=== PATIENT | female | born 1945 ===

== ENCOUNTER 2022-02-25 08:04 | Outpatient (CLI) | payer MEDICARE, OTHER | END 2022-02-25 12:53 | disposition home or self-care (01) | LOC: LAB 08:04 | PROVIDERS: ATTEND Podiatrist Foot & Ankle Surgery | DX: Z01.812 Encounter for preprocedural laboratory examination (principal); Z20.822 Contact with and (suspected) exposure to COVID-19 ==

== ENCOUNTER 2022-02-27 06:16 | Day surgery (SDC) | payer MEDICARE, OTHER ==
[2022-02-27] MEDS ORDERED: LIDOCAINE HCL 1% 20 ML VIAL ONE ×2 (06:38→06:39)
[2022-02-27] MEDS ORDERED: BUPIVACAINE PF 0.5% 30 ML VIAL ONE (06:38)
[2022-02-27 07:12] LABS: *BILIRUBIN,URIN NEGATIVE (NEGATIVE); *BLOOD, URINE 1+ (NEGATIVE); *CLARITY,URINE CLEAR (CLEAR); *COLOR,URINE YELLOW (YELLOW); *KETONES,URINE NEGATIVE (NEGATIVE); *UROBILINOGEN,URINE 0.2 E.U./dl (NORMAL); LEUKOCYTE ESTERASE ,URINE NEGATIVE (NEGATIVE); NITRITE, URINE NEGATIVE (NEGATIVE); PH,URINE 7.5 (5.0-8.0); UGLUCOSE NEGATIVE (NEGATIVE)
[2022-02-27] MEDS ORDERED: ROCURONIUM BROMIDE 50 MG/5 ML VIAL ONE (07:18)
[2022-02-27] MEDS ORDERED: FENTANYL CITRATE 100 MCG/2 ML AMPUL ONE ×2 (07:18→12:52)
[2022-02-27] MEDS ORDERED: SEVOFLURANE 250 ML BOTTLE ONE (07:26)
[2022-02-27] MEDS ORDERED: CLINDAMYCIN PHOSPHATE IV 600 MG in IV DEXTROSE 5% 100 ML IV ONE (07:30)
[2022-02-27 07:46] LABS: WBC,URINE 0-3 /HPF (0-3)
[2022-02-27 07:47] LABS: BACTERIA,URINE FEW /HPF (NONE SEEN); SQUAMOUS EPITHELIAL CELL,UR FEW /HPF (NONE SEEN)
[2022-02-27] MEDS ORDERED: KETOROLAC TROMETHAMINE 30 MG INJ ONE (13:16)
[2022-02-27] MEDS ORDERED: ONDANSETRON 4 MG/2 ML VIAL ONE (13:16)
[2022-02-27] MEDS ORDERED: GLYCOPYRROLATE 0.2 MG/ML VIAL ONE ×4 (13:16)
[2022-02-27] MEDS ORDERED: PHENYLEPHRINE 10 MG/1 ML VIAL ONE (13:16)
[2022-02-27] MEDS ORDERED: NEOSTIGMINE METHYLSULFATE 10 MG/10 ML VIAL ONE (13:16)
[2022-02-27] MEDS ORDERED: DEXAMETHASONE SOD PHOSPHATE 4 MG INJ ONE ×2 (13:16)
[2022-02-27] MEDS ORDERED: PROPOFOL 200 MG/20 ML BOTTLE ONE ×2 (13:16)
[2022-02-27] MEDS ORDERED: LIDOCAINE-MPF 2% 5 ML VIAL ONE (13:16)
== END 2022-02-27 15:30 | disposition home or self-care (01) ==
LOC: DS 06:16
PROVIDERS: ATTEND Podiatrist Foot & Ankle Surgery
DX: M20.11 Hallux valgus (acquired), right foot (principal); I10 Essential (primary) hypertension; M19.90 Unspecified osteoarthritis, unspecified site; F41.9 Anxiety disorder, unspecified; F32.9 Major depressive disorder, single episode, unspecified; Z79.899 Other long term (current) drug therapy; Z88.0 Allergy status to penicillin
CPT/HCPCS: 28110; 28208; 28285; 71045; 73630 ×2; 81001; J1100 ×2; J1885; J2370; J2405; J3010 ×2; J3490 ×10; J7120; A4649; A4663

== ENCOUNTER 2022-05-06 15:18 | Inpatient (IN) | payer MEDICARE, OTHER ==
[~2022-05-06] VITALS: Ht 165.1 cm; Wt 72.6 kg
[2022-05-07] MEDS ORDERED: ALBUTEROL SULFATE 1.25 MG/3 ML NEBU NEB PRN (04:30)
[2022-05-07 05:30] LABS: CARBON DIOXIDE 26 mmol/L (21-32); CHLORIDE 101 mmol/L (98-107); GLUCOSE 95 mg/dL (74-106); POTASSIUM 3.5 mmol/L (3.5-5.1); UREA NITROGEN, BLOOD 10 mg/dL (7-18)
[2022-05-07 05:31] LABS: CREATININE 0.8 mg/dL (0.6-1.3)
[2022-05-07 05:58] VITALS: BP 89/55
[2022-05-07] MEDS ORDERED: NOREPINEPHRINE BITARTRATE 8 MG in IV NORMAL SALINE 242 ML IV PRN (06:00)
[2022-05-07] MEDS ORDERED: VANCOMYCIN IV 1,000 MG in IV DEXTROSE 5% 250 ML IV SCH (08:00)
== END 2022-05-07 10:29 | disposition still patient (30) | DRG 951 ==
LOC: CCU 05-07 03:07
PROVIDERS: ADMIT Internal Medicine; ATTEND Internal Medicine
DX: Z00.00 Encounter for general adult medical examination without abnormal findings (principal)
CPT/HCPCS: 36415; G0378; J3370; J3490; J7050